=== PATIENT | female | born 1945 | race Caucasian/White ===

== ENCOUNTER 2018-07-06 15:21 | Emergency (ER) | payer MEDICARE ==
[~2018-07-06] VITALS: Ht 162.6 cm; Wt 48.0 kg
--- NOTE | 2018-07-06 15:35 | NUR ---
72 Y/O FEMALE STRAIGHT BACK FROM TRIAGE WITH C/O SOB. PT IS ACTIVELY IN TRI-POD. "I'VE BEEN SOB FOR 2 DAYS. I HAVE A NEBULIZER, BUT IT'S AT HOME IN [place]. SO I HAVEN'T USED THE NEB. I ONLY HAVE ON LUNG. 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 I JUST NEED A BREATHING TREATMENT." PT CHANGED INTO [place] AND ON [place]. NO C/O N/V/D, TRAUMA, SYNCOPE, CP
[2018-07-06] MEDS ORDERED: ALBUTEROL SULFATE 2.5 MG/3 ML ONE (15:39)
[2018-07-06] MEDS ORDERED: methylPREDNISolone SOD SUCC 125 MG/2 ML ONE (15:50)
[2018-07-06 15:51] LABS: BASOPHILS # (AUTO) 0.06 x10^3/uL (0-0.1); BASOPHILS % (AUTO) 1 % (0-1); EOSINOPHILS # (AUTO) 0.03 x10^3/uL (0-0.4); EOSINOPHILS % (AUTO) 0 % (1-7); LYMPHOCYTES # (AUTO) 1.97 x10^3/uL (1-3.4); LYMPHOCYTES % (AUTO) 27 % (22-44); MD NO; MEAN CORPUSCULAR HEMOGLOBIN 33.2 pg (27.0-34.8); MEAN CORPUSCULAR HGB CONC 32.6 g/dL (32.4-35.8); MEAN CORPUSCULAR VOLUME 101.8 fL (80-100); MEAN PLATELET VOLUME 7.3 fL (7.4-10.4); MONOCYTES # (AUTO) 0.43 x10^3/uL (0.2-0.8); MONOCYTES % (AUTO) 6 % (2-9); NEUTROPHILS # (AUTO) 4.84 x10^3/uL (1.8-6.8); NEUTROPHILS % (AUTO) 66 % (42-75); PLATELET COUNT 269 x10^3/uL (130-400); RED BLOOD COUNT 4.55 x10^6/uL (3.82-5.3); RED CELL DISTRIBUTION WIDTH 12.7 % (9.6-15.2)
[2018-07-06] MEDS ORDERED: MAGNESIUM SULFATE PMX 2GM/50ML 50 ML IV ONE (16:00)
[2018-07-06] MEDS ORDERED: ALBUTEROL/IPRATROPIUM 2.5MG/0.5MG, 3 ML NPPB ONE (16:00)
[2018-07-06] MEDS ORDERED: SODIUM CHLORIDE FLUSH 10ML SYR IVF ONE (16:00)
[2018-07-06] MEDS ORDERED: methylPREDNISolone SOD SUCC 125 MG/2 ML IVP ONE (16:00)
[2018-07-06] MEDS ORDERED: ALBUTEROL SULFATE 2.5 MG/3 ML NPPB SCH (16:00)
--- NOTE | 2018-07-06 16:00 | NUR ---
PIV ESTABLISHED. BEDSIDE REPORT TO WILLARD AGUIRRE.
[2018-07-06 16:01] LABS: ANION GAP 7 mmol/L (5-15); CHLORIDE 108 mmol/L (98-107)
[2018-07-06 16:06] LABS: ALANINE AMINOTRANSFERASE 69 U/L (12-78); ALKALINE PHOSPHATASE 39 U/L (45-117); BILIRUBIN,TOTAL 0.6 mg/dL (0.2-1.0); CREATININE 0.92 mg/dL (0.55-1.02); TOTAL PROTEIN 7.1 g/dL (6.4-8.2); TROPONIN I < 0.015 ng/mL (0.000-0.045)
[2018-07-06] MEDS ORDERED: MAGNESIUM SULFATE PMX 2GM/50ML 50 ML ONE (16:06)
--- NOTE | 2018-07-06 16:13 | NUR ---
RECEIVED REPORT FROM WILLARD SEPULVEDA. PT ADAMENT ON NOT BEING ADMITTED TO HOSPITAL. PT AGREEABLE TO RECEIVE MAGNESIUM IV AND PT STATES SHE WANTS TO GO HOME SOON MAGNESIUM IS ADMINISTERED. PT REFUSING TO BE ADMITTED AT THIS TIME. PT STATES SHE FEELS MUCH IMPROVED. SPEAKING IN FULL SENTENCES. LAYING BACK. APPEARS COMFORTABLE. O2 SATS MID 90'S ON RA.
--- NOTE | 2018-07-06 16:48 | NUR ---
PT RESTING ON GURNEY. NADN. FUENTES.
--- NOTE | 2018-07-06 17:23 | NUR ---
PT DOES NOT WANT TO STAY AFTER IV MAG ADMINISTERED. PT SIGNED AMA SHEET.
[2018-07-06 17:34] VITALS: BP 115/70
--- NOTE | 2018-07-06 17:35 | NUR ---
PT RESTING ON GURNEY. NADN. FUENTES.
--- NOTE | 2018-07-06 17:54 | NUR ---
PT IV MAG CMP. PT CONTINUES TO REFUSE TO STAY IN HOSPITAL. PT EDUCATED OF SX TO LOOK OUT FOR AND TO RETURN TO ED FOR SX. DISCUSSED RISKS OF LEAVING. PT VERBALIZES UNDERSTANDING. PT STATES SHE FEELS MUCH IMPROVED AND WANTS TO GO HOME. O2 SATS IN THE 90'S ON RA. PT CONTINUES TO SPEAK IN FULL SENTENCES W/O DIFFICULTY. NO USE OF ACCESSORY MUSCLES.
== END 2018-07-06 17:57 | disposition home or self-care (01) ==
LOC: ED 17:44
DX: J44.1 Chronic obstructive pulmonary disease with (acute) exacerbation (principal); F17.200 Nicotine dependence, unspecified, uncomplicated
CPT/HCPCS: 36415; 71045; 80053; 84484; 85025; 93005; 94640; 96365; 96366; 96375; 99284; J2930; J3475; J7613; J7620

== ENCOUNTER → 2019-03-07 | Outpatient (CLI) | payer MEDICARE ==
[~2019-03-07] MED LIST: OMNIPAQUE 350 MG/ML, 100ML BOTTLE ONE
== END | disposition home or self-care (01) ==
LOC: CFH 12:27
PROVIDERS: ATTEND Specialist
DX: C34.91 Malignant neoplasm of unspecified part of right bronchus or lung (principal); J43.9 Emphysema, unspecified; J98.4 Other disorders of lung; K76.0 Fatty (change of) liver, not elsewhere classified; N28.1 Cyst of kidney, acquired; M51.34 Other intervertebral disc degeneration, thoracic region
CPT/HCPCS: 71260; 74160; Q9967